=== PATIENT | male | born 1950 | race Caucasian/White ===

== ENCOUNTER 2022-12-01 15:18 | Emergency (ER) | payer MEDICARE ==
--- NOTE | 2022-12-01 17:28 | XR ---
EXAMINATION TYPE: XR knee complete 3 views LT DATE OF EXAM: 12/01/2022 COMPARISON: None HISTORY: 72-year-old male status post replacement, catching and pain, swelling FINDINGS: There is an underlying large joint effusion distending the quadriceps tendon anteriorly. There is a 2 .4 x 0.9 cm bone fragment in the suprapatellar region, possible loose body or sequela of prior surger y. Both distal femoral and proximal tibial components of the prosthesis appear well seated without pe riprostatic fracture. Extensor mechanism appears intact. IMPRESSION: Underlying left knee total arthroplasty. Note the presence of a large joint effusion. Correlate as to etiology. There is a 2.4 x 0.9 cm chronic, corticated bone fragment in the suprapatellar region, pos sibly sequela of patient's prior surgery. The distal femoral and proximal tibial components appear we ll seated without evident complication.
--- NOTE | 2022-12-01 18:06 | ED ---
General Adult HPI - General Chief complaint: Extremity Injury, Lower Stated complaint: left knee pain Time Seen by Provider: 12/01/22 15:46 Source: patient Mode of arrival: wheelchair Limitations: no limitations - History of Present Illness Initial comments: 72-year-old male with past medical history significant for total knee replacement, left 17 years ago presents to the ED with a chief complaint of left knee pain. Patient states over the past couple days felt as if his left knee has been "snagging". Today, states no known injury however notes significant pain of the left knee when bearing weight. Patient states due to this unable to bear weight on the left leg. Denies fever. No other complaints. - Related Data Allergies Allergy/AdvReac Type Severity Reaction Status Date / Time No Known Allergies Allergy Verified 12/01/22 15:24 Review of Systems ROS Statement: Those systems with pertinent positive or pertinent negative responses have been documented in the HPI. ROS Other: All systems not noted in ROS Statement are negative. Past Medical History Past Medical History: Cancer, Hyperlipidemia, Hypertension Additional Past Medical History / Comment(s): prostate cancer, skin cancer (basal cell), History of Any Multi-Drug Resistant Organisms: None Reported Past Surgical History: Joint Replacement, Orthopedic Surgery Smoking Status: Former smoker Past Alcohol Use History: Occasional Past Drug Use History: None Reported General Exam Limitations: no limitations General appearance: alert, in no apparent distress Eye exam: Present: normal appearance Respiratory exam: Present: normal lung sounds bilaterally Cardiovascular Exam: Present: regular rate, normal rhythm GI/Abdominal exam: Present: soft Extremities exam: Present: other (Range and sensation of the distal left lower extremity intact. Limited range of motion of the left knee secondary to pain. No obvious deformity. No crepitus. Left tissue swelling surrounding the left knee without overlying warmth or erythema.) Neurological exam: Present: alert, oriented X3 Course Vital Signs 12/01/22 15:20 Temperature 97.8 F Pulse Rate 74 Respiratory 18 Rate Blood Pressure 170/83 O2 Sat by Pulse 99 Oximetry Medical Decision Making - Medical Decision Making Was pt. sent in by a medical professional or institution (, PA, HEAD LOADER, urgent care, hospital, or detention...) When possible be specific @ -No Did you speak to anyone other than the patient for history (EMS, parent, family, police, friend...)? What history was obtained from this source @ -No Did you review nursing and triage notes (agree or disagree)? Why? @ -I reviewed and agree with nursing and triage notes Were old charts reviewed (outside hosp., previous admission, EMS record, old EKG, old radiological studies, urgent care reports/EKG's, detention records)? Report findings @ -No old charts were reviewed Differential Diagnosis (chest pain, altered mental status, abdominal pain women, abdominal pain men, vaginal bleeding, weakness, fever, dyspnea, syncope, headache, dizziness, GI bleed, back pain, seizure, CVA, palpatations, mental health, musculoskeletal)? @ -Septic joint, acute fracture. This not meant to be an all-inclusive list. EKG interpreted by me (3pts min.). @ -None X-rays interpreted by me (1pt min.). @ -X-ray demonstrated a large joint effusion and chronic bone fragment. CT interpreted by me (1pt min.). @ -None done U/S interpreted by me (1pt. min.). @ -None done What testing was considered but not performed or refused? (CT, X-rays, U/S, labs)? Why? @ -None What meds were considered but not given or refused? Why? @ -None Did you discuss the management of the patient with other professionals (professionals i.e. , PA, HEAD LOADER, lab, RT, psych nurse, social media developer, habilitative interventionist, teacher, compliance officer, case monitor)? Give summary @ -No Was smoking cessation discussed for >3mins.? @ -No Was critical care preformed (if so, how long)? @ -No Were there social determinants of health that impacted care today? How? (Homelessness, low income, unemployed, alcoholism, drug addiction, transportation, low edu. Level, literacy, decrease access to med. care, assisted, rehab)? @ -No Was there de-escalation of care discussed even if they declined (Discuss DNR or withdrawal of care, Hospice)? DNR status @ -No What co-morbidities impacted this encounter? (DM, HTN, Smoking, COPD, CAD, Cancer, CVA, ARF, Chemo, Hep., AIDS, mental health diagnosis, sleep apnea, morbid obesity)? @ -None Was patient admitted / discharged? Hospital course, mention meds given and route, prescriptions, significant lab abnormalities, going to OR and other pertinent info. @ -Discharge. X-ray of the left knee shows large joint effusion. Also additional finding of a 2.4 x 0.9 cm chronic corticated bone fragment in the supra patellar region. Symptoms likely related to joint effusion. No evidence of septic joint at this time. Patient Anthony wrap versus knee immobilizer. At this time patient would like Anthony wrap. Provided patient with disc. Provided patient with follow-up with orthopedic associates who [facility] follows with. Discussed plan of care with patient who verbalizes agreement. Discussed return precautions, patient verbalized agreement. Undiagnosed new problem with uncertain prognosis? @ -No Drug Therapy requiring intensive monitoring for toxicity (Heparin, Nitro, Insulin, Cardizem)? @ -No Were any procedures done? @ -No Diagnosis/symptom? @ -Left knee joint effusion. Acute, or Chronic, or Acute on Chronic? @ -Acute Uncomplicated (without systemic symptoms) or Complicated (systemic symptoms)? @ -Uncomplicated Side effects of treatment? @ -No Exacerbation, Progression, or Severe Exacerbation? @ -No Poses a threat to life or bodily function? How? (Chest pain, [place], [place], pneumonia, PE, COPD, DKA, ARF, appy, cholecystitis, CVA, Diverticulitis, Homicidal, Suicidal, threat to staff... and all critical care pts) @ -No Disposition Clinical Impression: Knee effusion, left Disposition: HOME SELF-CARE Condition: Good Instructions (If sedation given, give patient instructions): Swollen Knee Joint (ED) Is patient prescribed a controlled substance at d/c from ED?: No Referrals: Micah Quintero MD [Primary Care Provider] - 1-2 days Sultana Wan DO [Doctor of Osteopathic Medicine] - 1-2 days Time of Disposition: 18:10
[2022-12-01 19:00] VITALS: BP 137/80; PULSE 76; RESP 16; TEMP 98.1
== END 2022-12-01 18:34 | disposition home or self-care (01) ==
LOC: EC 15:18
DX: M25.462 Effusion, left knee (principal); I10 Essential (primary) hypertension; Z87.891 Personal history of nicotine dependence
CPT/HCPCS: 99283

== ENCOUNTER → 2024-10-26 | Outpatient (CLI) | payer MEDICARE ==
--- NOTE | 2024-10-27 13:13 | MR ---
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 Stud y is performed within 24 hours of arrival to the hospital.Multiplanar, multiecho imaging on a 3.0 [place] magnet is performed through the knee. IV Contrast: 10 mL Gadobutrol (None, if empty) FINDINGS: The craniovertebral junction is normal. The pituitary is normal. Diffusion-weighted imaging is performed. No abnormal hyperintensity is present to suggest an acute i ntracranial infarct or acute ischemic change. There is a large heterogenous area with hyperintensity in the right watershed region. This has low si gnal on T1-weighted sequences. Peripheral enhancement is present. This area measures approximately 5. 4 x 4.8 x 6.4 cm in size. Findings compatible with a large neoplastic process. Findings correlate wit h CT findings. No additional suspicious areas of enhancement are evident. There is some local mass effect on the right lateral ventricle. Ventricles and sulci are otherwise ap propriate for the patient age. No midline shift is evident. Some local sulci effacement adjacent to t he tumor may be present. IMPRESSION: 1. Enhancing mass right parietal lobe with mild local mass effect on the sulci and mild impression on the right lateral ventricle without midline shift or subfalcine herniation. [facility], , 10/27/2024 1:10 PM
== END | disposition home or self-care (01) ==
LOC: RADMRIMAIN 09:20
PROVIDERS: ATTEND Radiology Radiation Oncology
DX: C71.3 Malignant neoplasm of parietal lobe (principal); G93.89 Other specified disorders of brain
CPT/HCPCS: 70553; A9585

== ENCOUNTER → 2024-12-13 | Outpatient (CLI) | payer MEDICARE ==
[2024-12-13 09:15] LABS: African American GFR (CKD) 82 (>60 ml/min/1.73 sqM); Blood Urea Nitrogen 13 mg/dL (9-20); Non-African American GFR(CKD) 71 (>60 ml/min/1.73 sqM)
--- NOTE | 2024-12-13 09:59 | CT ---
EXAMINATION TYPE: CT brain wo/w con CT DLP: 2185.9 mGycm, Automated exposure control for dose reduction was used. DATE OF EXAM: 12/13/2024 9:41 AM COMPARISON: MRI brain 10/26/2024, outside institution CT brain 09/29/2024, 09/25/2024, 10/04/2024, outsid e institution MR brain 09/24/2024. 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 One or more CT dose reduction strategies were utili zed during this examination. Coronal and sagittal reformats reviewed. FINDINGS: Extra-axial spaces: No abnormal extra-axial fluid collections. Ventricular system: No hydrocephalus. Continued effacement of the posterior horn of the right lateral ventricle. Cerebral parenchyma: Postsurgical changes within the right temporal, parietal, and occipital lobes wi th resection cavity identified. There are some regions of vasogenic edema redemonstrated. There is ef facement of the peripheral sulci again. There is a regions of thin peripheral wall enhancement again of the resection cavity however there are irregular heterogenous regions of enhancement surrounding t he resection cavity which appears to have increased in size from prior exam. Along the superior pole lateral aspect is a 2.8 x 2.3 cm region (series 21, image 34) and additionally along the inferior asp ect is heterogenous nodular enhancement. No acute intraparenchymal hemorrhage.The remaining wiggins-whit e junction is well differentiated. Scattered hypoattenuating areas are seen within the periventricula r white matter. Likely related to chronic small vessel ischemic disease. Cerebellum: Unremarkable. Mass effect: Unchanged midline shift to the left of 6 mm. Intracranial vasculature: Atherosclerotic calcifications of the intracranial vessels. Soft tissues: Normal. Calvarium/osseous structures: No depressed skull fracture. Surgical changes from right parietal crani otomy. Paranasal sinuses and mastoid air cells: The mastoid air cells are clear. Minimal mucosal thickening of the inferior right maxillary sinus with suspected mucous retention cyst measuring up to 1.3 cm. Th e remaining paranasal sinuses are clear. Visualized orbits: Orbital contents are intact. IMPRESSION: Postsurgical changes from right parietal lobe mass resection. There are regions of normal thin enhanc ement along the periphery of the resection cavity however there is increased irregular nodular hetero genous enhancement surrounding the resection cavity. Most prominently within the superior lateral asp ect with additional regions around the resection cavity. Findings are concerning for recurrence/progr ession of disease. There appears to be slightly increased surrounding vasogenic edema within the righ t temporal and occipital lobes. Similar midline shift to the left of 6 mm. Recommend further evaluati on with MRI. [facility], , 12/13/2024 9:56 AM
== END | disposition home or self-care (01) ==
LOC: RADCTMAIN 08:38
PROVIDERS: ATTEND Radiology Radiation Oncology
DX: C71.8 Malignant neoplasm of overlapping sites of brain (principal); C71.3 Malignant neoplasm of parietal lobe; Z98.890 Other specified postprocedural states
CPT/HCPCS: 82565; 84520; 70470; 36415; Q9967